=== PATIENT | female | born 1955 | race Two or more races ===

== ENCOUNTER 2019-11-01 00:10 | Emergency (ER) | payer BC, MEDICAID ==
[2019-11-01] MEDS ORDERED: Acetaminophen/HYDROcodone 325-5 MG Tab PO ONE (00:11)
--- NOTE | 2019-11-01 00:18 | EDM.PDOC ---
ED HPI GENERAL MEDICAL PROBLEM - General Stated Complaint: hand injury Time Seen by Provider: 11/01/19 00:15 Source of Information: Reports: Patient History Limitations: Reports: Language Barrier (It should be noted that history is obtained through a family member who is fluent in the patient's [place] language and is at the patient's request.) - History of Present Illness INITIAL COMMENTS - FREE TEXT/NARRATIVE: 63-year-old female who reports or to 5 days ago awoke with blisters on her right palm, thenar eminence and some pain and burning associated with this. 2 days ago she was seen via of virtual visit through [facility] in [place] and apparently was felt to have Herpetic Laith and was placed on Valtrex thousand milligrams twice a day. In taking these medications as directed. Prior to this virtual visit, she had used fingernail clippers to "pop" blisters that were on the palm of her hand. Over the last 2 days, she has developed increasing pain and swelling over the thenar eminence and the thumb of the right hand associated with the rash and she has also developed an additional grouping of blisters and rash on her dorsal, ulnar right forearm. She is able to move her right hand and thumb but has pain when doing so she has no pain in the deep space of her hand. The pain is a burning and sore pain was sharp spikes with movement and with palpation. She is currently rating the pain as an 8/10. No fevers or chills. No nausea or vomiting. She has been eating and drinking normally. Her last blood sugar was in the 300 range but it was in the 100 range yesterday according to the patient and daughter. She had also complained of some tingling over her right thigh which began today as well. There is no rash in this area. She has no buttock or back pain. There are no other associated signs or symptoms. There are no other modifying factors. Onset: Other (5 days ago) Duration: Getting Worse (Seems to be getting worse over the past 2 days as above.) Location: Reports: Upper Extremity, Right Quality: Reports: Sharp, Throbbing Severity: Moderate Improves with: Reports: Immobilization, Rest Worsens with: Reports: Other (Palpation), Movement Context: Reports: Other (As above) Associated Symptoms: Reports: No Other Symptoms Treatments [employer] SALES REPRESENTATIVE: Reports: NSAIDS (Ibuprofen) - Related Data Allergies Allergy/AdvReac Type Severity Reaction Status Date / Time No Known Allergies Allergy Verified 11/01/19 01:02 Home Meds: Home Meds Clindamycin HCl 450 mg PO TID 10 Days #90 capsule 11/01/19 [Rx] Hydrocodone/Acetaminophen [[place] 5-325 Tablet] 1 - 2 each PO Q6H PRN #10 tablet 11/01/19 [Rx] Past Medical History Cardiovascular History: Reports: High Cholesterol (Dyslipidemia), Hypertension Neurological History: Reports: Neuropathy, Diabetic Endocrine/Metabolic History: Reports: Diabetes, Type II - Past Surgical History Other Surgical History Comment: No previous surgeries. 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 The patient speaks only Georgian and it was the patient's preference that the patient's daughter provide interpretation for her. Review of Systems - Review of Systems Review Of Systems: See Below Constitutional: Reports: No Symptoms Eyes: Reports: No Symptoms Ears: Reports: No Symptoms Nose: Reports: No Symptoms Mouth/Throat: Reports: No Symptoms Respiratory: Reports: No Symptoms Cardiovascular: Reports: No Symptoms GI/Abdominal: Reports: No Symptoms Genitourinary: Reports: No Symptoms Musculoskeletal: Reports: Hand Pain (Right hand and forearm pain.) Skin: Reports: Rash (A right hand and forearm consistent with herpes zoster), Erythema (And edema over the right thenar eminence and right thumb.) Neurological: Reports: No Symptoms Psychiatric: Reports: No Symptoms ED EXAM, GENERAL - Physical Exam Exam: See Below Exam Limited By: No Limitations General Appearance: Alert, WD/WN, Mild Distress, Other (She is nontoxic in appearance) Eye Exam: Bilateral Eye: EOMI, Normal Inspection Ears: Normal External Exam, Hearing Grossly Normal Ear Exam: Bilateral Ear: Auricle Normal Nose: Normal Inspection, Normal Mucosa, No Blood Throat/Mouth: Normal Inspection, Normal Oropharynx, Normal Voice, No Airway Compromise Head: Atraumatic, Normocephalic Neck: Normal Inspection, Supple, Non-Tender, Full Range of Motion Respiratory/Chest: No Respiratory Distress, Lungs Clear, Normal Breath Sounds, No Accessory Muscle Use, Chest Non-Tender Cardiovascular: Normal Peripheral Pulses, Regular Rate, Rhythm, No Murmur Peripheral Pulses: 2+: Radial (L), Radial (R) GI/Abdominal: Normal Bowel Sounds, Soft, Non-Tender Back Exam: Normal Inspection Extremities: No Pedal Edema, Normal Capillary Refill, Limited Range of Motion ( Secondary to pain but she does have an extension and her right hand right thumb) , Increased Warmth (Over the thenar eminence and the right thumb), Redness. No : Joint Swelling (No joint effusion noted.) Neurological: Alert, Oriented, CN II-XII Intact, Normal Cognition, No Motor/ Sensory Deficits Skin Exam: Warm, Dry, Intact, Erythema (Over the right thenar eminence and right thumb area.), Rash, Zoster-Like Rash (On the right upper extremity as above) Lymphatic: No Adenopathy Course - Orders/Labs/Meds Meds: Medications Discontinued Medications Generic Name Dose Route Start Last Admin Trade Name Freq PRN Reason Stop Dose Admin Hydrocodone Bitart/Acetaminophen Confirm 11/01/19 01:27 [place] 325-5 Mg Administered 11/01/19 01:28 Dose 4 tab .ROUTE .STK-MED ONE Ceftriaxone Sodium 1 gm 11/01/19 01:02 11/01/19 01:18 Rocephin IM 11/01/19 01:03 1 gm ONETIME ONE Administration Clindamycin HCl 450 mg 11/01/19 01:02 11/01/19 01:19 Cleocin PO 11/01/19 01:03 450 mg ONETIME ONE Administration - Re-Assessments/Exams Free Text/Narrative Re-Assessment/Exam: 11/01/19 01:05: Patient has what appears to be herpes zoster of her right upper extremity radial nerve dermatome. She also has some mild erythema and increased warmth in the thenar eminence and around the right thumb. There is range of motion with the right hand and right thumb by the patient is somewhat limited but is still present. She does not have a joint effusion that I can discern nor does she have any pain in the these pain for Palm of the right hand. She is on Valtrex and this should be appropriate treatment for her zoster. I am concerned that she is or has developed a bacterial superinfection with a soft tissue cellulitis of the right hand. I am treating the patient with Rocephin 1 g IM and I am placing the patient on clindamycin 450 by mouth 3 times a day. She will be given a dose of the clindamycin now. I will also give the patient a take home pack of hydrocodone 5/325 and a prescription of the same. I have stressed to the daughter and to the patient through the daughter that if her hand pain, redness and swelling is not proved or no worse within 12 hours, she should seek reevaluation of this. Certainly if it worsens with increased swelling, increased pain or fever, she should represent to an emergency department for any way should immediately at that time. The patient through the daughter and the daughter voiced understanding of this. Departure - Departure Time of Disposition: 01:45 Disposition: Home, Self-Care 01 Condition: Good Clinical Impression: Cellulitis of right hand Herpes zoster Qualifiers: Herpes zoster complications: without complications Qualified Code(s): B02.9 - Zoster without complications - Discharge Information Prescriptions: Clindamycin HCl 450 mg PO TID 10 Days #90 capsule Hydrocodone/Acetaminophen [[place] 5-325 Tablet] 1 - 2 each PO Q6H PRN #10 tablet PRN Reason: Moderate to severe pain Instructions: Shingles, [id number], Cellulitis, Adult, [id number] Referrals: Taylor Juarez, [facility] [Primary Care Provider] - Additional Instructions: You have what appears to be shingles or herpes zoster of your right upper extremity. You also appeared to be developing a secondary bacterial infection cellulitis of your hand and thumb area. You were given an antibiotic shot and oral dose of another antibiotic to begin treatment of this cellulitis. I have also given you a prescription of some additional antibiotics that you should begin tomorrow morning (clindamycin). You need to take probiotics (you may get these [id number] at any pharmacy) or eat yogurt daily while you were on the antibiotics. I have also given you a prescription for pain medication for moderate to severe pain (hydrocodone 5/325). Avoid any use with your right arm. Elevate your right hand higher than your heart level as often as possible over next week. You should come back to an emergency department for reevaluation if you develop worsening pain, worsening swelling, worse redness, fever or any other concerning sign or symptom. If the pain, swelling and redness is not improved within the next 12 hours, the right hand should be reevaluated in an emergency department. Sepsis Event Note - Focused Exam Date Exam was Performed: 11/01/19 Time Exam was Performed: 01:36
[2019-11-01] MEDS ORDERED: cefTRIAXone 1 GM Vial IM ONE (01:02)
[2019-11-01] MEDS ORDERED: Clindamycin HCl 150 MG Cap PO ONE (01:02)
[2019-11-01] MEDS ORDERED: Acetaminophen/HYDROcodone 325-5 MG Tab ONE (01:27)
== END 2019-11-01 01:55 | disposition home or self-care (01) ==
LOC: FB.ED 00:10
DX: B02.9 Zoster without complications (principal)
CPT/HCPCS: 96372; 99283; A9270; J0696

== ENCOUNTER 2023-11-30 00:49 | Emergency (ER) | payer MEDICARE ==
[2023-11-30 01:21] LABS: BASOPHILS PERCENT AUTO 0.3 % (0.2-1.5); EOSINOPHILS ABSOLUTE AUTO 0.1 x10-3/uL (0.0-0.8); EOSINOPHILS PERCENT AUTO 1.2 % (0.6-8.1); HEMATOCRIT 36.6 % (34.2-48.2); HEMOGLOBIN 11.6 g/dL (11.4-15.5); LYMPHOCYTES ABSOLUTE AUTO 3.1 x10-3/uL (1.0-4.4); LYMPHOCYTES PERCENT AUTO 29.2 % (18.4-52.1); MEAN CORPUSCULAR HEMOGLOBIN 25.8 pg (23.9-33.9); MEAN CORPUSCULAR HGB CONC 31.6 g/dL (31.9-34.8); MEAN CORPUSCULAR VOLUME 81.8 fL (76.7-100.5); MEAN PLATELET VOLUME 8.6 fL (7.1-12.4); MONOCYTES ABSOLUTE AUTO 0.9 x10-3/uL (0.3-1.0); MONOCYTES PERCENT AUTO 8.1 % (4.4-15.7); NEUTROPHILS ABSOLUTE AUTO 6.5 x10-3/uL (1.5-6.3); NEUTROPHILS PERCENT AUTO 61.2 % (30.8-76.2); PLATELET COUNT,PLT 214 x10(3)uL (151-488); RED BLOOD CELL COUNT 4.47 x10(6)uL (3.60-5.20); RED CELL DISTRIBUTION WIDTH 13.9 % (12.3-16.5); WHITE BLOOD CELL COUNT,WBC 10.7 x10-3/uL (3.0-10.3)
[2023-11-30] MEDS: Ondansetron 4 MG/2 ML SDV IVPUSH ONE (01:22)
[2023-11-30] MEDS: Sodium Chloride 0.9% 1,000 ML IV SCH (01:22)
[2023-11-30] MEDS: Sodium Chloride 0.9% 10 ML Syringe FLUSH PRN (01:23)
[2023-11-30 01:29] LABS: BLOOD UREA NITROGEN,BUN 15 mg/dL (7-18); BUN/CREATININE RATIO 21.4 (9-20); CALCIUM 9.2 mg/dL (8.6-10.2); CARBON DIOXIDE,CO2 29 mmol/L (21-32); CHLORIDE,CL 102 mmol/L (100-110); CREATININE 0.7 mg/dL (0.55-1.02); EST CRCL DRUG DOSING (CG) 60.84 mL/min; ESTIMATED GFR 94 mL/min (>60); GLUCOSE RANDOM 60 mg/dL (80-116); POTASSIUM,K 3.6 mmol/L (3.5-5.3); SODIUM,NA 142 mmol/L (135-145)
[2023-11-30] MEDS: 50% Dextrose in Water 50 ML Syringe IVPUSH ONE (01:41)
[2023-11-30 03:01] LABS: BILIRUBIN,URINE NEGATIVE (NEGATIVE); GLUCOSE,URINE 250 mg/dL (NORMAL); KETONES,URINE NEGATIVE (NEGATIVE); LEUKOCYTE ESTERASE,URINE NEGATIVE (NEGATIVE); NITRITE,URINE NEGATIVE (NEGATIVE); OCCULT BLOOD,URINE NEGATIVE (NEGATIVE); PROTEIN,URINE NEGATIVE (NEGATIVE); UROBILINOGEN,URINE NORMAL (NEGATIVE)
[2023-11-30 03:03] LABS: APPEARANCE,URINE CLEAR (CLEAR); COLOR,URINE YELLOW (YELLOW)
== END 2023-11-30 03:15 | disposition home or self-care (01) ==
LOC: FB.ED 00:49
DX: K52.9 Noninfective gastroenteritis and colitis, unspecified (principal); E11.649 Type 2 diabetes mellitus with hypoglycemia without coma; I10 Essential (primary) hypertension; E11.21 Type 2 diabetes mellitus with diabetic nephropathy
CPT/HCPCS: 80048; 81003; 82947; 85025; 96361; 96374; 96375; 99284; 99284-25; J2405; J3490; J7030

== ENCOUNTER 2024-01-13 01:25 | Emergency (ER) | payer MEDICARE ==
[2024-01-13 02:17] LABS: BASOPHILS ABSOLUTE AUTO 0.1 x10-3/uL (0.0-0.1); BASOPHILS PERCENT AUTO 0.6 % (0.2-1.5); EOSINOPHILS ABSOLUTE AUTO 0.1 x10-3/uL (0.0-0.8); EOSINOPHILS PERCENT AUTO 1.5 % (0.6-8.1); HEMATOCRIT 33.4 % (34.2-48.2); HEMOGLOBIN 10.9 g/dL (11.4-15.5); LYMPHOCYTES ABSOLUTE AUTO 3.4 x10-3/uL (1.0-4.4); LYMPHOCYTES PERCENT AUTO 39.9 % (18.4-52.1); MEAN CORPUSCULAR HEMOGLOBIN 26.2 pg (23.9-33.9); MEAN CORPUSCULAR HGB CONC 32.8 g/dL (31.9-34.8); MEAN CORPUSCULAR VOLUME 79.9 fL (76.7-100.5); MEAN PLATELET VOLUME 8.7 fL (7.1-12.4); MONOCYTES ABSOLUTE AUTO 0.7 x10-3/uL (0.3-1.0); MONOCYTES PERCENT AUTO 8.8 % (4.4-15.7); NEUTROPHILS ABSOLUTE AUTO 4.2 x10-3/uL (1.5-6.3); NEUTROPHILS PERCENT AUTO 49.2 % (30.8-76.2); PLATELET COUNT,PLT 232 x10(3)uL (151-488); RED BLOOD CELL COUNT 4.18 x10(6)uL (3.60-5.20); RED CELL DISTRIBUTION WIDTH 14.1 % (12.3-16.5); WHITE BLOOD CELL COUNT,WBC 8.5 x10-3/uL (3.0-10.3)
[2024-01-13 02:23] LABS: BLOOD UREA NITROGEN,BUN 14 mg/dL (7-18); BUN/CREATININE RATIO 23.3 (9-20); CALCIUM 8.6 mg/dL (8.6-10.2); CARBON DIOXIDE,CO2 30 mmol/L (21-32); CHLORIDE,CL 104 mmol/L (100-110); CREATININE 0.6 mg/dL (0.55-1.02); EST CRCL DRUG DOSING (CG) 70.98 mL/min; ESTIMATED GFR 98 mL/min (>60); GLUCOSE RANDOM 73 mg/dL (80-116); POTASSIUM,K 3.3 mmol/L (3.5-5.3); SODIUM,NA 142 mmol/L (135-145)
== END 2024-01-13 03:10 | disposition home or self-care (01) ==
LOC: FB.ED 01:25
DX: M79.662 Pain in left lower leg (principal); E11.40 Type 2 diabetes mellitus with diabetic neuropathy, unspecified; I10 Essential (primary) hypertension
CPT/HCPCS: 36415; 80048; 85025; 85379; 99283